=== PATIENT | female | born 1990 | race Caucasian/White ===

== ENCOUNTER 2018-04-09 12:39 | Emergency (ER) | payer MEDICAID ==
[~2018-04-09] VITALS: Ht 152.4 cm; Wt 61.0 kg
[2018-04-09 13:48] LABS: CLARITY URINE CLOUDY (CLEAR); COLOR URINE DARK YELLOW (YELLOW); KETONES URINE 2+ (NEGATIVE); LEUKOCYTE ESTERASE URINE TRACE (NEGATIVE); NITRITE URINE NEGATIVE (NEGATIVE); OCCULT BLOOD URINE NEGATIVE (NEGATIVE); PH URINE 5.5 (4.5-8.0); PROTEIN URINE NEGATIVE (NEGATIVE); SPECIFIC GRAVITY URINE 1.024 (1.005-1.030)
[2018-04-09] MEDS ORDERED: KETOROLAC 30MG/ML VIAL IV STA (14:40)
[2018-04-09] MEDS ORDERED: ONDANSETRON HCL 4MG/2ML VIAL IV STA (14:40)
[2018-04-09] MEDS ORDERED: MORPHINE SULFATE 4 MG/ML CPJ (NOT FOR IM USE) IV STA (14:40)
[2018-04-09] MEDS ORDERED: SODIUM CHLORIDE 0.9% 1,000 ML IV ONE ×2 (14:40→18:19)
[2018-04-09] MEDS ORDERED: FAMOTIDINE 20MG/2ML VIAL IV STA (14:40)
[2018-04-09 14:52] LABS: BASOPHILS % 0.6 % (0.0-2.0); EOSINOPHILS % 1.9 % (0.0-5.0); HEMATOCRIT. 40.6 % (36.0-48.0); LYMPHOCYTES % 23.2 % (20.0-50.0); MEAN CORPUSCULAR HEMOGLOBIN 29.9 pg (28.0-32.0); MEAN CORPUSCULAR VOLUME 86.6 fL (81.0-99.0); MONOCYTES % 12.3 % (2.0-8.0); PLATELET 284 x1000/uL (130-400); RED BLOOD CELL COUNT 4.69 mill/uL (4.2-5.4); RED CELL DISTRIBUTION WIDTH 12.6 % (11.6-14.6)
[2018-04-09 14:57] LABS: CHLORIDE 107 mEq/L (98-107)
[2018-04-09 14:59] LABS: PROTHROMBIN TIME 10.7 sec (9.4-11.6)
[2018-04-09 15:01] LABS: ETHANOL BLOOD < 10 mg/dL
[2018-04-09 15:14] LABS: HCG SCREEN NEGATIVE
[2018-04-09 19:14] VITALS: BP 104/64
[2018-04-10 15:19] LABS: *BARBITURATES SCREEN URINE NEGATIVE (NEGATIVE); *BENZODIAZEPINES SCREEN URINE NEGATIVE (NEGATIVE); *COCAINE SCREEN URINE NEGATIVE (NEGATIVE)
[2018-04-10 15:20] LABS: *AMPHETAMINES SCREEN URINE PRESUMTIVE POSITIVE (NEGATIVE); CANNABINOID URINE SCREEN NEGATIVE (NEGATIVE); METHADONE URINE SCREEN NEGATIVE (NEGATIVE); OPIATES URINE SCREEN PRESUMTIVE POSITIVE (NEGATIVE); PHENCYCLIDINE URINE SCREEN NEGATIVE (NEGATIVE)
== END 2018-04-09 19:14 | disposition home or self-care (01) ==
LOC: ER 12:49
DX: K52.9 Noninfective gastroenteritis and colitis, unspecified (principal); F41.9 Anxiety disorder, unspecified; F17.200 Nicotine dependence, unspecified, uncomplicated; Z79.899 Other long term (current) drug therapy
CPT/HCPCS: 36415; 71045; 74176; 80053; 81003; 81025; 82962; 83605; 83690; 84484; 84703; 85025; 85610; 87040; 87086; 96361; 96374; 96375; 99285; G0482; J1885; J2270; J2405; J3490; J7030; Z7610

== ENCOUNTER 2021-04-15 20:43 | Observation (INO) | payer MEDICAID ==
[~2021-04-15] VITALS: Ht 152.4 cm; Wt 65.8 kg
[2021-04-15 22:25] LABS: CLARITY URINE CLEAR (CLEAR); COLOR URINE YELLOW (YELLOW); KETONES URINE NEGATIVE (NEGATIVE); LEUKOCYTE ESTERASE URINE 1+ (NEGATIVE); NITRITE URINE POSITIVE (NEGATIVE); OCCULT BLOOD URINE TRACE (NEGATIVE); PH URINE 6.5 (4.5-8.0); PROTEIN URINE TRACE (NEGATIVE)
[2021-04-15] MEDS ORDERED: PNV91TAB6 PO (22:27)
[2021-04-15 22:36] LABS: *BENZODIAZEPINES SCREEN URINE NEGATIVE (NEGATIVE); *COCAINE SCREEN URINE NEGATIVE (NEGATIVE); METHADONE URINE SCREEN NEGATIVE (NEGATIVE); OPIATES URINE SCREEN NEGATIVE (NEGATIVE); PHENCYCLIDINE URINE SCREEN NEGATIVE (NEGATIVE)
[2021-04-15 22:38] LABS: *AMPHETAMINES SCREEN URINE NEGATIVE (NEGATIVE); *BARBITURATES SCREEN URINE NEGATIVE (NEGATIVE)
[2021-04-15 22:47] LABS: CANNABINOID URINE SCREEN PRESUMTIVE POSITIVE (NEGATIVE)
[2021-04-29 14:16] LABS: CANNABINOID CONFIRMATION URINE Positive (.)
[2021-05-24] MEDS ORDERED: IBUP-2030 PO (08:48)
== END 2021-04-15 22:31 | disposition left against medical advice (07) ==
LOC: 8 EST LDRP 20:43
PROVIDERS: ADMIT Specialist; ATTEND Specialist
DX: O26.893 Other specified pregnancy related conditions, third trimester (principal); R10.9 Unspecified abdominal pain; R23.2 Flushing; Z3A.34 34 weeks gestation of pregnancy
CPT/HCPCS: 80305; 80349; 81003; G0378; 99281

== ENCOUNTER 2021-05-21 11:12 | Inpatient (IN) | payer MEDICAID ==
[~2021-05-21] VITALS: Ht 154.9 cm; Wt 67.1 kg
[~2021-05-21 11:12] MED LIST: PNV91TAB6 PO
[2021-05-21] MEDS ORDERED: LACTATED RINGERS 1,000 ML IV SCH (16:00)
[2021-05-21] MEDS ORDERED: DEXT 5%/LR + PITOCIN 20UNITS/L 1,000 ML IV SCH (16:00)
[2021-05-21] MEDS ORDERED: METHYLERGONOVINE MALEATE 0.2 MG/ML IM PRN (16:00)
[2021-05-21] MEDS ORDERED: CITRIC ACID/SODIUM CITRATE SOLN 30ML UDC PO NR (16:15)
[2021-05-21 17:40] LABS: BASOPHILS % 0.5 % (0.0-2.0); EOSINOPHILS % 1.9 % (0.0-5.0); HEMATOCRIT. 33.1 % (36.0-48.0); HEMOGLOBIN. 11.2 g/dL (12.0-16.0); LYMPHOCYTES % 18.3 % (20.0-50.0); MEAN CORPUSCULAR HEMOGLOBIN 25.8 pg (28.0-32.0); MEAN CORPUSCULAR VOLUME 76.1 fL (81.0-99.0); MEAN PLATELET VOLUME 7.9 fl (7.4-10.4); MONOCYTES % 9.9 % (2.0-8.0); NEUTROPHILS % 69.4 % (40.0-76.0); PLATELET 315 x1000/uL (130-400); RED BLOOD CELL COUNT 4.35 mill/uL (4.2-5.4); RED CELL DISTRIBUTION WIDTH 14.6 % (11.6-14.6)
[2021-05-21 17:42] LABS: CLARITY URINE CLEAR (CLEAR); COLOR URINE YELLOW (YELLOW); KETONES URINE NEGATIVE (NEGATIVE); LEUKOCYTE ESTERASE URINE 3+ (NEGATIVE); NITRITE URINE NEGATIVE (NEGATIVE); OCCULT BLOOD URINE NEGATIVE (NEGATIVE); PH URINE 7.5 (4.5-8.0); PROTEIN URINE NEGATIVE (NEGATIVE); SPECIFIC GRAVITY URINE 1.009 (1.005-1.030)
[2021-05-21 18:03] LABS: *BARBITURATES SCREEN URINE NEGATIVE (NEGATIVE)
[2021-05-21 18:04] LABS: *BENZODIAZEPINES SCREEN URINE NEGATIVE (NEGATIVE); *COCAINE SCREEN URINE NEGATIVE (NEGATIVE); CANNABINOID URINE SCREEN NEGATIVE (NEGATIVE); METHADONE URINE SCREEN NEGATIVE (NEGATIVE); OPIATES URINE SCREEN NEGATIVE (NEGATIVE); PHENCYCLIDINE URINE SCREEN NEGATIVE (NEGATIVE)
[2021-05-21 18:05] LABS: *AMPHETAMINES SCREEN URINE NEGATIVE (NEGATIVE)
[2021-05-21 18:31] LABS: HEPATITIS B SURFACE ANTIGEN NEGATIVE
[2021-05-21] MEDS ORDERED: CEFAZOLIN SODIUM 1000MG/VIAL ONE (19:19)
[2021-05-21] MEDS ORDERED: OXYTOCIN 10 UNITS/ML 1ML ONE (19:19)
[2021-05-21] MEDS ORDERED: ONDANSETRON HCL 4MG/2ML INJ ONE (19:19)
[2021-05-21] MEDS ORDERED: FENTANYL CITRATE/PF 50MCG/ML 2ML VIAL ONE (19:19)
[2021-05-21] MEDS ORDERED: DIPHENHYDRAMINE 50MG/ML VIAL ONE (20:18)
[2021-05-21] MEDS ORDERED: KETOROLAC 60MG/2ML VIAL IM ONE (20:18)
[2021-05-21 20:26] LABS: INR 0.9; PARTIAL THROMBOPLASTIN TIME 24.3 sec (23.4-31.0); PROTHROMBIN TIME 9.8 sec (9.6-11.0)
[2021-05-21] MEDS ORDERED: NALOXONE HCL 0.4 MG/ML 1ML VIAL IV PRN (20:45)
[2021-05-21] MEDS ORDERED: DIPHENHYDRAMINE 50MG/ML VIAL IV PRN (20:45)
[2021-05-21] MEDS ORDERED: BUTORPHANOL TARTRATE 2 MG/ML VIAL IV PRN (20:45)
[2021-05-21 23:00] VITALS: BP 104/48
[2021-05-21 23:30] VITALS: BP 99/55
[2021-05-22] VITALS: BP 97/55
[2021-05-22] MEDS: KETOROLAC 30MG/ML VIAL IV SCH ×2 (02:51→07:53)
[2021-05-22 04:00] VITALS: BP 99/51
[2021-05-22] MEDS ORDERED: ONDANSETRON HCL 4MG/2ML INJ IV PRN (04:00)
[2021-05-22] MEDS ORDERED: BISACODYL 10MG SUPP PR PRN (04:00)
[2021-05-22] MEDS ORDERED: DEXT 5%/LR + PITOCIN 20UNITS/L 1,000 ML IV SCH (04:00)
[2021-05-22] MEDS ORDERED: DIPHENHYDRAMINE 25MG CAPSULE PO PRN (04:00)
[2021-05-22] MEDS ORDERED: HEMORRHOIDAL SUPP PR PRN (04:00)
[2021-05-22] MEDS ORDERED: IBUPROFEN 400MG TABLET PO PRN (04:00)
[2021-05-22] MEDS ORDERED: RHO(D) IMMUNE GLOBULIN 300 MCG/SYR IM PRN (04:00)
[2021-05-22] MEDS ORDERED: ACETAMINOPHEN WITH CODEINE 300/30MG TABLET PO PRN (04:00)
[2021-05-22] MEDS ORDERED: LANOLIN OINT 7GM TUBE TOP PRN (04:00)
[2021-05-22] MEDS: PRENATAL VIT/FE FUMARATE/FA TABLET PO SCH (07:57)
[2021-05-22 08:00] VITALS: BP 99/65
[2021-05-22 10:06] LABS: BASOPHILS % 0.5 % (0.0-2.0); EOSINOPHILS % 1.2 % (0.0-5.0); HEMATOCRIT. 33.6 % (36.0-48.0); HEMOGLOBIN. 10.7 g/dL (12.0-16.0); MEAN CORPUSCULAR HEMOGLOBIN 24.7 pg (28.0-32.0); MEAN PLATELET VOLUME 7.4 fl (7.4-10.4); MONOCYTES % 12.1 % (2.0-8.0); NEUTROPHILS % 71.2 % (40.0-76.0); PLATELET 283 x1000/uL (130-400); RED BLOOD CELL COUNT 4.31 mill/uL (4.2-5.4); RED CELL DISTRIBUTION WIDTH 14.8 % (11.6-14.6)
[2021-05-22] MEDS: MAGNESIUM/ALUMINUM HYDROXIDE/SIMETHICONE 30ML UDC PO SCH ×3 (12:30→22:00)
[2021-05-22 14:38] VITALS: BP 96/57
[2021-05-22] MEDS: IBUPROFEN 800MG TABLET PO PRN (17:19)
[2021-05-22 20:00] VITALS: BP 98/54
[2021-05-22] MEDS: DOCUSATE SODIUM 100MG CAPSULE PO SCH (22:00)
[2021-05-23] MEDS: IBUPROFEN 800MG TABLET PO PRN ×4 (00:19→20:10)
[2021-05-23 04:00] VITALS: BP 96/52
[2021-05-23] MEDS: MAGNESIUM/ALUMINUM HYDROXIDE/SIMETHICONE 30ML UDC PO SCH ×4 (07:30→20:20)
[2021-05-23 08:00] VITALS: BP 93/57
[2021-05-23] MEDS: PRENATAL VIT/FE FUMARATE/FA TABLET PO SCH (08:49)
[2021-05-23] MEDS: FERROUS SULFATE 325MG TABLET PO SCH ×3 (08:49→16:59)
[2021-05-23 14:58] VITALS: BP 113/54
[2021-05-23] MEDS: DOCUSATE SODIUM 100MG CAPSULE PO SCH (20:19)
[2021-05-23 22:00] VITALS: BP 108/61
[2021-05-24] MEDS: IBUPROFEN 800MG TABLET PO PRN ×2 (01:52→08:30)
[2021-05-24 07:30] VITALS: BP 107/70
[2021-05-24] MEDS: PRENATAL VIT/FE FUMARATE/FA TABLET PO SCH (08:29)
[2021-05-24] MEDS: FERROUS SULFATE 325MG TABLET PO SCH (08:29)
[2021-05-24] MEDS: MAGNESIUM/ALUMINUM HYDROXIDE/SIMETHICONE 30ML UDC PO SCH (08:29)
[2021-05-24] MEDS ORDERED: IBUP-2030 PO (08:48)
== END 2021-05-24 10:25 | disposition home or self-care (01) | DRG 540 ==
LOC: 8 EST A/PP 11:12 → OBSVTOIN 11:12 → 8EST 22:25
PROVIDERS: ADMIT Obstetrics & Gynecology; ATTEND Obstetrics & Gynecology
PROC: 10D00Z1 Extraction of Products of Conception, Low, Open Approach (ICD-10-PCS; principal; 2021-05-21)
PROC: 3E033VJ Introduction of Other Hormone into Peripheral Vein, Percutaneous Approach (ICD-10-PCS; 2021-05-21)
DX: O32.1XX0 Maternal care for breech presentation, not applicable or unspecified (principal); Z20.822 Contact with and (suspected) exposure to COVID-19; Z37.0 Single live birth; Z3A.40 40 weeks gestation of pregnancy
CPT/HCPCS: 36415; 76805; 76818; 80305; 81003; 85025; 86592; 86703; 86762; 86850; 86900; 87340; 87426; 88307; J0690; J1200; J1885; J2405; J2590; J3010